=== PATIENT | male | born 1960 | race Caucasian/White ===

== ENCOUNTER 2018-10-27 09:44 | Observation (INO) | payer OTHER ==
[2018-10-27] MEDS ORDERED: HYDROmorphONE/DILAUDID 2 MG/ML INJ IVP ONE (10:21)
--- NOTE | 2018-10-27 10:24 | EDPHY ---
H & P Stated Complaint: Left leg wound Time Seen by Provider: 10/27/18 10:12 HPI/ROS: CHIEF COMPLAINT: Left leg infection HISTORY OF PRESENT ILLNESS: Patient is a 58-year-old morbidly obese man who comes to the emergency department complaining of an abscess to his left dumont. It is at the site of a hematoma that he developed in March after hitting his leg on a piece of metal. He did not have a laceration or abrasion. His leg was significant bruised but healed up and he has been fine for the last several months but over the last 2-3 days has noticed increased pain swelling and erythema. Yesterday he saw his primary who started him on Keflex. Today his symptoms were worse and he has developed an abscess. He was told to come here to the ER. No fever. He does not have diabetes. Severity: Moderate Modifying factors: None REVIEW OF SYSTEMS: Constitutional: denies: chills, fever, recent illness, recent injury EENTM: denies: blurred vision, double vision, nose congestion Respiratory: denies: cough, shortness of breath Cardiac: denies: chest pain, irregular heart rate, lightheadedness, palpitations Gastrointestinal/Abdominal: denies: abdominal pain, diarrhea, nausea, vomiting, blood streaked stools Genitourinary: denies: dysuria, frequency, hematuria, pain Musculoskeletal: See HPI Skin: See HPI Neurological: denies: headache, numbness, paresthesia, tingling, dizziness, weakness Hematologic/Lymphatic: denies: blood clots, easy bleeding, easy bruising Immunologic/allergic: denies: HIV/AIDS, transplant 10 systems reviewed and negative except as noted EXAM: GENERAL: Well-appearing, well-nourished and in no acute distress. HEAD: Atraumatic, normocephalic. EYES: Pupils equal round and reactive to light, extraocular movements intact, sclera anicteric, conjunctiva are normal. ENT: TMs normal, nares patent, oropharynx clear without exudates. Moist mucous membranes. NECK: Normal range of motion, supple without lymphadenopathy or JVD. LUNGS: Breath sounds clear to auscultation bilaterally and equal. No wheezes rales or rhonchi. HEART: Regular rate and rhythm without murmurs, rubs or gallops. ABDOMEN: Soft, nontender, normoactive bowel sounds. No guarding, no rebound. No masses appreciated. BACK: No CVA tenderness, no spinal tenderness, step-offs or deformities EXTREMITIES: Abscess see below, Normal range of motion, mild pitting or edema left leg. No clubbing or cyanosis. NEUROLOGICAL: Cranial nerves II through XII grossly intact. Normal speech, normal gait. 5/5 strength, normal movement in all extremities, normal sensation , normal reflexes PSYCH: Normal mood, normal affect. SKIN: Fluctuant abscess left dumont, surrounding cellulitis. Source: Patient Exam Limitations: No limitations - Personal History Current Tetanus/Diphtheria Vaccine: Yes - Medical/Surgical History Hx Asthma: No Hx Chronic Respiratory Disease: No Hx Diabetes: No Hx Cardiac Disease: No Hx Renal Disease: No Hx Cirrhosis: No Hx Alcoholism: No Hx HIV/AIDS: No Hx Splenectomy or Spleen Trauma: No Other PMH: HTN, cholycystectomy, appendectomy - Family History Significant Family History: No pertinent family hx - Social History Smoking Status: Never smoked Alcohol Use: Sober Drug Use: None Constitutional: Initial Vital Signs Temperature (C) 36.7 C 10/27/18 10:02 Heart Rate 80 10/27/18 10:02 Respiratory Rate 18 10/27/18 10:02 Blood Pressure 140/78 H 10/27/18 10:02 O2 Sat (%) 92 10/27/18 10:02 O2 Delivery Mode Room Air Allergies/Adverse Reactions: oxycodone [From Percocet] Allergy (Verified 10/27/18 10:02) Home Medications: Medication Instructions Recorded Lisinopril [Zestril 40 mg (*)] 40 mg PO HS 10/27/18 Metoprolol Tartrate [Lopressor 100 200 mg PO BID 10/27/18 mg (*)] amLODIPine BESYLATE [Norvasc 10 mg 10 mg PO HS 10/27/18 (*)] Medical Decision Making Procedures: Procedure: Abscess drainage. The patient's abscess was located on the left leg. I obtained verbal consent from the patient to drain the abscess who was informed about the possibility of bleeding and pain. The abscess was incised with 11 blade scalpel and 15 cc of purulent drainage was expressed. I irrigated the wound and placed some packing. The patient tolerated the procedure well. The procedure was performed by myself. ED Course/Re-evaluation: Patient tolerated procedure well. I offered admission because of the deep abscess and extending cellulitis and edema. He would like this. We will send cultures and started vancomycin. 12:50 p.m. the patient does not wish to be stuck again for blood cultures. We did obtain a wound culture. We will not obtain blood cultures at patient's request. He will be given vancomycin. I spoke with Carol Ann who accepted for Dr. Means Differential Diagnosis: Partial list of the Differential diagnosis considered include but were not limited to; cellulitis, abscess, deep space infection and although unlikely based on the history and physical exam, I also considered osteomyelitis, DVT. I discussed these differential diagnoses and the plan with the patient as well as the usual and expected course. The patient understands that the diagnosis is provisional and that in medicine we are not always correct and that further workup is often warranted. Usual and customary warnings were given. All of the patient's questions were answered. The patient was instructed to return to the emergency department should the symptoms at all worsen or return, otherwise to followup with the physician as we discussed. - Data Points Laboratory Results: Laboratory Results 10/27/18 10:40 10/27/18 10:40 Microbiology Results: MICROBIOLOGY 10/27/18 12:10 Leg - Swab Gram Stain - Final 10/27/18 12:10 Leg - Swab Wound Culture - Preliminary Staphylococcus Aureus Medications Given: Acetaminophen (Tylenol) 650 mg PO Q4HRS PRN PRN Reason: Pain, Mild/Fever, Can Take PO Stop: 04/25/19 13:01 Last Admin: 10/28/18 07:47 Dose: 650 mg Amlodipine Besylate (Norvasc) 10 mg PO HS DELL Stop: 04/25/19 20:59 Last Admin: 10/27/18 19:55 Dose: 10 mg Enoxaparin Sodium (Lovenox) 40 mg SC BID DELL Stop: 04/25/19 20:59 Last Admin: 10/28/18 07:42 Dose: 40 mg Vancomycin HCl 1.5 gm/ Sodium (Chloride) 250 mls @ 166.667 mls/hr IV Q12H DELL Stop: 11/27/18 00:59 Last Admin: 10/28/18 12:57 Dose: 250 mls Lisinopril (Zestril) 40 mg PO HS DELL Stop: 04/25/19 20:59 Last Admin: 10/27/18 19:55 Dose: 40 mg Metoprolol Tartrate (Lopressor) 200 mg PO BID DELL Stop: 04/25/19 20:59 Last Admin: 10/28/18 07:41 Dose: 200 mg Discontinued Medications Hydromorphone HCl (Dilaudid) 1 mg IVP EDNOW ONE Stop: 10/27/18 10:22 Last Admin: 10/27/18 10:37 Dose: 1 mg Hydromorphone HCl (Dilaudid) 1 mg IVP EDNOW ONE Stop: 10/27/18 11:03 Last Admin: 10/27/18 11:16 Dose: 1 mg Vancomycin/Sodium Chloride (Vancomycin 1 Gm (Premix)) 250 mls @ 250 mls/hr IV EDNOW ONE PRN Reason: Protocol Stop: 10/27/18 13:48 Last Admin: 10/27/18 13:08 Dose: 250 mls Sodium Chloride (Ns) 1,000 mls @ 3,000 mls/hr IV ONCE ONE Stop: 10/27/18 13:22 Last Admin: 10/27/18 13:07 Dose: 1,000 mls Departure - Departure Disposition: [facility] Acute Clinical Impression: Abscess of left lower leg, Cellulitis of left leg Condition: Fair
[2018-10-27] MEDS ORDERED: HYDROmorphONE/DILAUDID 1 MG/ML INJ IVP ONE (11:02)
[2018-10-27] MEDS ORDERED: VANCOMYCIN HCL/NORMAL SALINE 250 ML IV ONE (12:49)
[2018-10-27] MEDS ORDERED: ONDANSETRON DISINTEGRATING 4 MG TAB PO PRN (13:02)
[2018-10-27] MEDS ORDERED: HYDROmorphONE/DILAUDID 1 MG/ML INJ IVP PRN (13:02)
[2018-10-27] MEDS ORDERED: ONDANSETRON 4 MG/2 ML VIAL IVP PRN (13:02)
[2018-10-27] MEDS ORDERED: NS 1,000 ML IV ONE (13:03)
[2018-10-27 13:10] LABS: PLATELET COUNT 207 10^3/uL (150-400)
--- NOTE | 2018-10-27 13:49 | PDGENHP ---
History and Physical - Chief Complaint Left leg pain and swelling - History of Present Illness 58 y/o male presents with 2-3 day left leg swelling, redness and pain. He denies any recent trauma to the extremity. However in March, he hit his left dumont on a metal bar. Subsequently, he had a "rainbow" bruise up and down his dumont but there was no break in the skin, no blood. He denies fevers, chills, chest pains, SOB, nausea, dysuria, headache. He doesn't think he scratch his leg. Per pt, his left dumont area is red, swollen and had a "golf ball" size abscess. I personally did not see this abscess as I evaluated the pt after Dr. King lanced and drained wound. The pt reports 10/10 pain with movement and 1 /10 while still. Past Medical/Surgical History 1. Hypertension 2. Cholecystectomy 3. Appendectomy Social 1. Lives with , Yadi in a ranch-style house 2. Denies tobacco use. Occasionally uses marijuana. 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[employer] Vital Signs 120/71 61 HR 16 Respirations 94% RA 37.2c History Information - Allergies/Home Medication List Allergies/Adverse Reactions: acetaminophen [From Percocet] Allergy (Verified 10/27/18 10:02) oxycodone [From Percocet] Allergy (Verified 10/27/18 10:02) Home Medications: Lisinopril [Zestril 40 mg (*)] 40 mg PO HS 10/27/18 [Last Taken 10/26/18] Metoprolol Tartrate [Lopressor 100 mg (*)] 200 mg PO BID 10/27/18 [Last Taken 09:00] amLODIPine BESYLATE [Norvasc 10 mg (*)] 10 mg PO HS 10/27/18 [Last Taken ] I have personally reviewed and updated: family history, medical history, social history, surgical history Past Medical History: See HPI List - Surgical History Reports: appendectomy, cholecystectomy - Family History Positive for: non-pertinent - Social History Smoking Status: Never smoked Alcohol Use: Rarely Drug Use: Marijuana Review of Systems Review of Systems: ROS: 10pt was reviewed & negative except for what was stated in HPI & below Constitutional: Reports: no symptoms EENMT: Reports: no symptoms Cardiac: Reports: no symptoms Respiratory: Reports: no symptoms Gastrointestinal: Reports: no symptoms Genitourinary: Reports: no symptoms Muscolosketal: Reports: muscle pain (Left dumont) Skin: Reports: lesions (Left dumont), rash Neurological: Reports: no symptoms Hematologic/Lymphatic: Reports: no symptoms Immunologic/Allergy: Reports: other (See allergy list) Physical Exam Physical Exam: Temp Pulse Resp BP Pulse Ox 37.2 C 61 16 120/71 94 10/27/18 13:11 10/27/18 13:11 10/27/18 13:11 10/27/18 13:11 10/27/18 13:11 Constitutional: no apparent distress, appears nourished, obese, other (Pleasant cooperative patient with LLE pain with movement) Eyes: PERRL, anicteric sclera, EOMI Ears, Nose, Mouth, Throat: moist mucous membranes, hearing normal, ears appear normal, no oral mucosal ulcers Cardiovascular: regular rate and rhythym, no murmur, rub, or gallop, No edema Peripheral Pulses: 1+: dorsalis-pedis (R) (Radial 2+), dorsalis-pedis (L) ( Radial 2+) Respiratory: no respiratory distress, no rales or rhonchi, clear to auscultation Gastrointestinal: normoactive bowel sounds, soft, non-tender abdomen, other ( Round abdomen) Genitourinary: no bladder fullness, no bladder tenderness Skin: warm, no fluctuance, no induration, erythema, rash, No mottled Musculoskeletal: pain with ROM (Painful LLE movement. Weak DF/PF) Neurologic: AAOx3, sensation intact bilaterally, CN II-XII Intact Psychiatric: interacting appropriately, not anxious, not encephalopathic, thought process linear Lymph, Heme, Immunologic: no cervical LAD, no supraclavicular LAD Lab Data & Imaging Review 10/27/18 10:40 10/27/18 10:40 WBC 14.73 10^3/uL (3.80-9.50) H 10/27/18 10:40 RBC 5.18 10^6/uL (4.40-6.38) 10/27/18 10:40 Hgb 16.0 g/dL (13.7-17.5) 10/27/18 10:40 Hct 47.0 % (40.0-51.0) 10/27/18 10:40 MCV 90.7 fL (81.5-99.8) 10/27/18 10:40 MCH 30.9 pg (27.9-34.1) 10/27/18 10:40 MCHC 34.0 g/dL (32.4-36.7) 10/27/18 10:40 RDW 13.4 % (11.5-15.2) 10/27/18 10:40 Plt Count 207 10^3/uL (150-400) 10/27/18 10:40 MPV 10.1 fL (8.7-11.7) 10/27/18 10:40 Neut % (Auto) 80.1 % (39.3-74.2) H 10/27/18 10:40 Lymph % (Auto) 11.2 % (15.0-45.0) L 10/27/18 10:40 [place] % (Auto) 8.1 % (4.5-13.0) 10/27/18 10:40 Eos % (Auto) 0.1 % (0.6-7.6) L 10/27/18 10:40 Baso % (Auto) 0.2 % (0.3-1.7) L 10/27/18 10:40 Nucleat RBC Rel Count 0.0 % (0.0-0.2) 10/27/18 10:40 Absolute Neuts (auto) 11.79 10^3/uL (1.70-6.50) H 10/27/18 10:40 Absolute Lymphs (auto) 1.65 10^3/uL (1.00-3.00) 10/27/18 10:40 Absolute Monos (auto) 1.20 10^3/uL (0.30-0.80) H 10/27/18 10:40 Absolute Eos (auto) 0.02 10^3/uL (0.03-0.40) L 10/27/18 10:40 Absolute Basos (auto) 0.03 10^3/uL (0.02-0.10) 10/27/18 10:40 Absolute Nucleated RBC 0.00 10^3/uL (0-0.01) 10/27/18 10:40 Immature Gran % 0.3 % (0.0-1.1) 10/27/18 10:40 Immature Gran # 0.04 10^3/uL (0.00-0.10) 10/27/18 10:40 Sodium 137 mEq/L (135-145) 10/27/18 10:40 Potassium 4.1 mEq/L (3.5-5.2) 10/27/18 10:40 Chloride 105 mEq/L (97-110) 10/27/18 10:40 Carbon Dioxide 20 mEq/l (22-31) L 10/27/18 10:40 Anion Gap 12 mEq/L (6-14) 10/27/18 10:40 BUN 20 mg/dL (7-23) 10/27/18 10:40 Creatinine 1.3 mg/dL (0.7-1.3) 10/27/18 10:40 Estimated GFR 57 10/27/18 10:40 Glucose 115 mg/dL (70-100) H 10/27/18 10:40 Calcium 9.0 mg/dL (8.5-10.4) 10/27/18 10:40 Assessment & Plan Plan: 58 y/o male with purulent cellulitis and other co-morbidities inhibiting proper circulation, therefore decrease wound healing time. 1. Cellulitis with purulent abscess: mild leukocytosis, afebrile and hemodynamically stable. Possibly poor venous return considering his weight and sedentary lifestyle that could be a factor with this wound. He denies diabetes. Outpatient ultrasound performed yesterday to LLE was inconclusive in the calf d/t the amount of edema, however clinically I do not believe a DVT is present. No DVT found in rest of LLE. I would suggest after receiving IV antibiotics tomorrow and if he continues to c/o increase pain or no improvement in his condition, then a repeat ultrasound should be considered. -IV Vancomycin -Blood cultures pending -Wound culture and gram stain pending -A1c -CBC/BMP tomorrow 2. Hypertension: per pt, diagnosed 1.5 years ago -He may continue to take his home medications of lisinopril, metoprolol, amlodipine -Continue to monitor 3. Morbid obesity -Educated pt on daily physical exercise and diet 4. Hyperlipidemia: outside lab work in August 2018. He had elevated numbers. Discussed f/u with his PCP to re: possible statin medications and/or alter his current lifestyle with emphasis on safe weight loss, exercise and keeping a healthy diet. 5. Elevated creatinine: I do not believe he is DIONNE. Current creatinine is 1.3. Outside lab work reveal August 2018 of 1.51 and in September 2018 of 1.15. Continue to monitor closely. -CBC/BMP tomorrow Diet: Cardiac VTE ppx: SCD (on right leg) and Lovenox BID subQ Code: Full Dispo: Admit to obs
--- NOTE | 2018-10-27 18:06 | HOSPPROG ---
Hospitalist Progress Note Assessment/Plan: 58 y/o male admitted with LLE cellulitis. Pt seen in conjunction with our EXPERIMENTAL PREFLIGHT MECHANIC, Cristina Schneider. agree with her H&P and A/P I agree with Vancomycin, pharmacy to dose He is hemodynamically stable, s/p 1 L of IVF cont BP meds Doubt DVT cont DVT proph NO HX OF CHF NO HX OF DM Exam: NAD AAOX3 RRR CTA B S/NT/ND LLE SWELLING AND ERYTHEM RLE WITH EDEMA MEDS REVIEWED DX: #LLE cellulitis with purulent abscess s/p ID -cont Vancomycin -f/u wound and blood cultures #Pedal edema likely due to chronic venous insufficiency. no hx of CHF #HTN: -cont home meds #Morbid Obesity #HLD, likely needs a Statin. recheck lipid panel in a.m. Will also check A1C DVT proph: Lovenox Objective: Vital Signs Temp Pulse Resp BP Pulse Ox 37.2 C 64 16 133/80 H 91 L 10/27/18 14:28 10/27/18 14:28 10/27/18 14:28 10/27/18 14:28 10/27/18 14:28 10/26/18 10/27/18 10/28/18 05:59 05:59 05:59 Intake Total 1000 Balance 1000 ICD10 Worksheet Patient Problems: Problems Problem Status Onset Abscess of left lower leg Acute Cellulitis of left leg Acute
[2018-10-27] MEDS: METOPROLOL TARTRATE 100 MG TAB PO SCH (19:55)
[2018-10-27] MEDS: ENOXAPARIN 40 MG/0.4 ML SYR SC SCH (19:55)
[2018-10-27] MEDS: ACETAMINOPHEN 325 MG TAB PO PRN (19:55)
[2018-10-27] MEDS: LISINOPRIL 40 MG TAB PO SCH (19:55)
[2018-10-27] MEDS ORDERED: ENOXAPARIN 30 MG/0.3 ML SYR SC SCH (21:00)
[2018-10-28] MEDS: VANCOMYCIN 1.5 GM in NS 250 ML IV SCH ×2 (01:32→12:57)
[2018-10-28] MEDS: METOPROLOL TARTRATE 100 MG TAB PO SCH ×2 (07:41→21:47)
[2018-10-28] MEDS: ENOXAPARIN 40 MG/0.4 ML SYR SC SCH ×2 (07:42→21:48)
[2018-10-28] MEDS: ACETAMINOPHEN 325 MG TAB PO PRN (07:47)
--- NOTE | 2018-10-28 13:49 | ASMTCMCOM ---
CM Note CM Note Notes: CM reviewed chart for d/c planning. Pt is a 58y/o male who presented at the ED with an abcess on his left dumont. His leg was red, swollen and painful. He was diagnosed with cellulitis and mild leucolycitis. His hx is significant for HTN and morbid obesity. There are no orders for OT/PT. No CM needs have been identified. CM will follow for changes. D/C Plan: Anticipate independent. Date Signed: 10/28/2018 01:49 PM Electronically Signed By:Ivory Street
[2018-10-28] MEDS ORDERED: HYDROCODONE/APAP 5/325 TAB PO PRN (16:11)
--- NOTE | 2018-10-28 16:20 | HOSPPROG ---
Hospitalist Progress Note Assessment/Plan: 58 y/o male admitted with LLE cellulitis. #LLE cellulitis with purulent abscess s/p ID, culture MSSA -Stop Vancomycin, Change to Cefazolin, Await sensitivities -f/u blood cultures -wound care #Pedal edema likely due to chronic venous insufficiency. no hx of CHF #HTN: -cont home meds #Morbid Obesity #Hx of HLD reported: LDL is less than 100. DVT proph: Lovenox cont inpatient. cont iv abx. start Bennett for pain mgmt Subjective: left leg pain is better. bp ok. afebrile. Objective: Vital Signs Temp Pulse Resp BP Pulse Ox 37.2 C 55 L 16 147/87 H 92 10/28/18 15:44 10/28/18 11:49 10/28/18 15:44 10/28/18 15:44 10/28/18 11:49 Laboratory Results 10/28/18 05:03 10/28/18 05:03 10/27/18 10/28/18 10/29/18 05:59 05:59 05:59 Intake Total 1900 1000 Output Total 850 1750 Balance 1050 -750 - Physical Exam Constitutional: no apparent distress Eyes: PERRL Ears, Nose, Mouth, Throat: moist mucous membranes, hearing normal Cardiovascular: regular rate and rhythym, edema Respiratory: no respiratory distress, no rales or rhonchi, clear to auscultation Gastrointestinal: normoactive bowel sounds, soft, non-tender abdomen Genitourinary: no bladder fullness Skin: warm, other (lle swelling and erythema improving, ulcer noted, draining) Neurologic: AAOx3 Lymph, Heme, Immunologic: No petechiae ICD10 Worksheet Patient Problems: Problems Problem Status Onset Abscess of left lower leg Acute Cellulitis of left leg Acute
[2018-10-28] MEDS: LISINOPRIL 40 MG TAB PO SCH (21:47)
[2018-10-29 05:12] LABS: PLATELET COUNT 205 10^3/uL (150-400)
[2018-10-29] MEDS: METOPROLOL TARTRATE 100 MG TAB PO SCH (07:30)
[2018-10-29 07:32] VITALS: BP 120/79
[2018-10-29] MEDS: ENOXAPARIN 40 MG/0.4 ML SYR SC SCH (07:32)
--- NOTE | 2018-10-29 15:15 | ASDISCHSUM ---
Discharge Information Plan Status:Home with No Needs Medically Cleared to Leave:10/28/2018 Discharge Date:10/29/2018 02:45 PM CM D/C Disposition:Home, Routine, Self-Care ADT D/C Disposition:Home, Routine, Self-Care Projected Discharge Date:10/29/2018 02:45 PM Transportation at D/C:Family Discharge Delay Reason: Follow-Up Date:10/29/2018 02:45 PM Discharge Slot: Final Diagnosis:cellulitis Placement Information Patient Contact Information Contact Name:ZEENAT Relationship: Address:[address] Work Phone: [facility] [employer] Alternate Phone: [facility]/Zip Code:[place] [address] Email: Financial Information Financial Class:HMO and PPO Plans Primary Plan Desc:[employer] Primary Plan Number:[id number] Secondary Plan Desc: Secondary Plan Number: Assessment Information LACE LACE Length of stay for Answers: 1 day current admission Acuity / Level of Answers: Yes Care: Did the patient have an inpatient admission? Comorbidities - select Answers: Other Notes: HTN all that apply # of Emergency department Answers: 1-2 visits in the last 6 months Score: 6 Date Signed: 10/29/2018 03:14 PM Electronically Signed By:Jeanna Peguero [facility] CM Progress Note CM Note CM Note Notes: CM reviewed chart for d/c planning. Pt is a 58y/o male who presented at the ED with an abcess on his left dumont. His leg was red, swollen and painful. He was diagnosed with cellulitis and mild leucolycitis. His hx is significant for HTN and morbid obesity. There are no orders for OT/PT. No CM needs have been identified. CM will follow for changes. D/C Plan: Anticipate independent. Date Signed: 10/28/2018 01:49 PM Electronically Signed By:Ivory Street [facility] CM Progress Note CM Note CM Note Notes: Pt admitted for cellulitis. Spoke with pt and in the room. Pt comfortable discharging independently. No CM needs noted at this time. Date Signed: 10/29/2018 03:13 PM Electronically Signed By:Jeanna Peguero Intervention Information
--- NOTE | 2018-10-29 17:53 | PDDCSUM ---
Discharge Summary Discharge Summary: 58 y/o male admitted with LLE cellulitis and ulceration. I&D was performed in the ER. MSSA grew out. He was initially treated with Vancomycin and then transitioned to IV Cefazolin. Prior to admission he had started Keflex. Today he was offered an additional day of IV abx but given that he had improvement he requested transition to oral abx. He will start Augmentin for a total treatment plan of 10 days. He agrees to f/u with his PCP on either Wednesday or Wednesday (2-3 days from today) for further mgmt including wound care and dressing which were changed today. He was also offered wound care consultation as an outpatient but want to f/u with his PCP. There was no e/o HLD or DM. He is hemodynamically stable. He has been afebrile DDX: #LLE cellulitis with purulent abscess s/p ID, culture MSSA #Pedal edema likely due to chronic venous insufficiency. no hx of CHF #HTN: -cont home meds #Morbid Obesity #Hx of HLD reported: LDL is less than 100 on our lab testing Exam: NAD AAOX3 BILATERAL LEG SWELLING LEFT LEG WITH ULCER ON ANTERIOR [place], HEALING APPROPRIATELY WITH PACKING IN PLACE. SURROUNDING ERYTHEMA IS SIGNIFICANTLY BETTER. NO LONGER TTP MEDS: SEE MED REC F/U: PER ABOVE TOTAL TIME SPENT ON D/C IS 35 MINS
== END 2018-10-29 14:45 | disposition home or self-care (01) ==
LOC: F3E 14:16
PROVIDERS: ADMIT Family Medicine; ATTEND Family Medicine
PROC: 0H9LXZX Drainage of Left Lower Leg Skin, External Approach, Diagnostic (ICD-10-PCS; principal; 2018-10-27)
DX: L03.116 Cellulitis of left lower limb (principal); L02.416 Cutaneous abscess of left lower limb; B95.61 Methicillin susceptible Staphylococcus aureus infection as the cause of diseases classified elsewhere; S80.12XS Contusion of left lower leg, sequela; I10 Essential (primary) hypertension; E66.01 Morbid (severe) obesity due to excess calories; E78.5 Hyperlipidemia, unspecified; Z68.41 Body mass index [BMI] 40.0-44.9, adult
CPT/HCPCS: 10060; 96372; 96374; 96375; 96376; 99285; G0378; J0690; J1170; J1650; J3370